=== PATIENT | female | born 2000 | race African-American/Black ===

== ENCOUNTER 2019-03-28 09:58 | Emergency (ER) | payer OTHER ==
[~2019-03-28] VITALS: Ht 167.6 cm; Wt 54.4 kg
[2019-03-28 10:00] VITALS: BP 103/69
== END 2019-03-28 13:05 | disposition home or self-care (01) ==
LOC: EDBD 09:58 → ER 09:58
DX: J98.01 Acute bronchospasm (principal); T78.40XA Allergy, unspecified, initial encounter; F41.9 Anxiety disorder, unspecified; X58.XXXA Exposure to other specified factors, initial encounter